=== PATIENT | female | born 1945 | race Asian ===

== ENCOUNTER 2022-10-21 10:37 | Inpatient (IN) | payer OTHER, MEDICAID ==
[~2022-10-21] VITALS: Ht 152.4 cm; Wt 53.1 kg
[~2022-10-21 10:37] MED LIST: ACYC400T19 PO; AMLO-138 PO; GLIM4TAB PO; LEVO750T64 PO; LIPA1CAP23 PO; PRED20TA PO; PRO40 PO; RANI-362 PO; REPA2TAB PO; ROSU10TA2 PO; SITA100T11 PO
[2022-10-21] MEDS ORDERED: CLON0.1T PO (11:12)
[2022-10-21] MEDS ORDERED: ROSU5TAB13 PO (11:12)
[2022-10-21] MEDS ORDERED: REPA1TAB8 PO (11:12)
[2022-10-21] MEDS ORDERED: CALC0.5C11 PO (11:12)
[2022-10-21 11:13] VITALS: BP_SYST 130; PULSE 60; RESP 16; TEMP 97.7; O2SAT 98
[2022-10-21 11:15] LABS: BASOPHILS % (AUTO) 0.7 % (0.0-2.0); EOSINOPHILS % (AUTO) 0.8 % (0.0-4.0); HEMATOCRIT 33.3 % (36-48); HEMOGLOBIN 11.2 g/dL (12.0-16.0); LYMPHOCYTES # (AUTO) 1.4 K/uL (1.0-5.5); LYMPHOCYTES % (AUTO) 32.3 % (20.5-51.5); MEAN CORPUSCULAR HEMOGLOBIN 29 pg (27-31); MEAN CORPUSCULAR HGB CONC 34 % (32-36); MEAN CORPUSCULAR VOLUME 86 fL (79.0-98.0); MONOCYTES # (AUTO) 0.5 K/uL (0.0-1.0); MONOCYTES % (AUTO) 11.1 % (1.7-9.3); NEUTROPHILS # (AUTO) 2.5 K/uL (1.8-7.7); NEUTROPHILS % (AUTO) 55.1 % (40.0-70.0); PLATELET COUNT (AUTO) 201 K/uL (130-430); RED BLOOD CELL COUNT(AUTO) 3.86 MIL/uL (4.2-6.2); RED CELL DISTRIBUTION WIDTH 14.1 % (9.0-15.0); WHITE BLOOD COUNT (AUTO) 4.5 K/uL (4.8-10.8)
[2022-10-21 11:34] LABS: BILIRUBIN,URINE NEGATIVE (NEGATIVE); BLOOD, URINE NEGATIVE (NEGATIVE); CLARITY/URINE CLEAR (CLEAR); GLUCOSE,URINE NEGATIVE (NEGATIVE); KETONES,URINE NEGATIVE (NEGATIVE); LEUKOCYTE ESTERASE ,URINE NEGATIVE (NEGATIVE); NITRITE, URINE NEGATIVE (NEGATIVE); PH,URINE 5.5 (5.0-8.0); PROTEIN URINE 3+ (NEGATIVE); UROBILINOGEN,URINE 0.2 (0.2-1.0)
[2022-10-21 11:36] LABS: ANION GAP 9 (5-15); CALCIUM 9.3 mg/dL (8.4-11.0); CHLORIDE 88 mmol/L (98-107); CREATININE 2.62 mg/dL (0.55-1.30); GLUCOSE 144 mg/dL (74-106); UREA NITROGEN, BLOOD 35 mg/dL (8-21)
[2022-10-21 11:38] LABS: COLOR,URINE STRAW (YELLOW)
[2022-10-21 11:40] LABS: ALANINE AMINOTRANSFERASE 17 U/L (12-78); ALBUMIN 3.4 g/dL (3.4-4.8); ASPARTATE AMINOTRANSFERASE 21 U/L (10-37); TOTAL BILIRUBIN 0.3 mg/dL (0.0-1.0)
[2022-10-21] MEDS ORDERED: ACETAMINOPHEN 500 MG TABLET PO ONE (12:15)
[2022-10-21] MEDS: NACL 0.9% 1,000 ML IV SCH (12:36)
[2022-10-21 13:30] VITALS: BP_SYST 130; PULSE 63; RESP 18; TEMP 97.7; O2SAT 0
[2022-10-21] MEDS ORDERED: ZOLPIDEM TARTRATE 5 MG TABLET PO PRN (13:30)
[2022-10-21] MEDS ORDERED: POTASSIUM CHLORIDE 20 MEQ TAB.PRT.SR PO PRN (13:30)
[2022-10-21] MEDS ORDERED: MUPIROCIN 2% TOPICAL OINTMENT 22 GM NS PRN (13:30)
[2022-10-21] MEDS ORDERED: ONDANSETRON HCL 4 MG/2 ML VIAL IVP PRN (13:30)
[2022-10-21] MEDS ORDERED: ACETAMINOPHEN 325 MG TABLET PO PRN ×2 (13:30→13:45)
[2022-10-21] MEDS ORDERED: MAGNESIUM SULFATE 50 ML IV PRN (13:30)
[2022-10-21] MEDS ORDERED: DOCUSATE SODIUM 100 MG CAPSULE PO PRN (13:30)
[2022-10-21] MEDS ORDERED: MORPHINE 2 MG/ML INJ. SYRINGE IVP PRN ×2 (13:30)
[2022-10-21] MEDS ORDERED: DEXTROSE 50% JECT 50 ML DISP.SYRIN IVP PRN (13:30)
[2022-10-21] MEDS ORDERED: NALOXONE HCL 0.4 MG/ML AMP (NARCAN) IVP PRN ×2 (13:30)
[2022-10-21] MEDS ORDERED: INSULIN LISPRO SLIDING SCALE 100 UNITS/ML, 3 ML VIAL (humaLOG) SUBCUT PRN (13:30)
[2022-10-21] MEDS ORDERED: LORazepam 2 MG/ML VIAL IVP PRN (13:30)
[2022-10-21] MEDS: LIPASE/PROTEASE/AMYLASE 1 CAP PO SCH ×2 (15:41→21:05)
[2022-10-21 15:43] VITALS: BP_SYST 107; PULSE 52; RESP 18; TEMP 97.8
[2022-10-21 19:50] VITALS: BP_SYST 121; PULSE 55; RESP 18; TEMP 96.8; O2SAT 97
[2022-10-22] VITALS: BP_SYST 125; PULSE 57; RESP 16; TEMP 98.2; O2SAT 98
[2022-10-22] MEDS: NACL 0.9% 1,000 ML IV SCH ×2 (03:20→22:11)
[2022-10-22 05:27] LABS: BASOPHILS % (AUTO) 0.6 % (0.0-2.0); EOSINOPHILS % (AUTO) 1.4 % (0.0-4.0); HEMATOCRIT 30.4 % (36-48); HEMOGLOBIN 10.3 g/dL (12.0-16.0); LYMPHOCYTES # (AUTO) 1.5 K/uL (1.0-5.5); LYMPHOCYTES % (AUTO) 42.5 % (20.5-51.5); MEAN CORPUSCULAR HEMOGLOBIN 29 pg (27-31); MEAN CORPUSCULAR HGB CONC 34 % (32-36); MEAN CORPUSCULAR VOLUME 86 fL (79.0-98.0); MONOCYTES # (AUTO) 0.5 K/uL (0.0-1.0); MONOCYTES % (AUTO) 13.1 % (1.7-9.3); NEUTROPHILS # (AUTO) 1.5 K/uL (1.8-7.7); NEUTROPHILS % (AUTO) 42.4 % (40.0-70.0); PLATELET COUNT (AUTO) 203 K/uL (130-430); RED BLOOD CELL COUNT(AUTO) 3.54 MIL/uL (4.2-6.2); WHITE BLOOD COUNT (AUTO) 3.6 K/uL (4.8-10.8)
[2022-10-22 05:53] LABS: ANION GAP 10 (5-15); CHLORIDE 99 mmol/L (98-107); CREATININE 2.54 mg/dL (0.55-1.30); GLUCOSE 95 mg/dL (74-106); PHOSPHORUS 4.5 mg/dL (2.7-4.5); UREA NITROGEN, BLOOD 38 mg/dL (8-21)
[2022-10-22 08:00] VITALS: BP_SYST 141; PULSE 68; RESP 18; TEMP 97.7; O2SAT 99
[2022-10-22] MEDS: ATORVASTATIN 20 MG TABLET PO SCH (09:27)
[2022-10-22] MEDS: calcitrioL 0.25 MCG CAPSULE PO SCH (09:27)
[2022-10-22] MEDS: LIPASE/PROTEASE/AMYLASE 1 CAP PO SCH ×3 (09:27→22:08)
[2022-10-22 12:00] VITALS: BP_SYST 134; PULSE 57; RESP 18; TEMP 98.3; O2SAT 99
[2022-10-22 16:00] VITALS: BP_SYST 148; PULSE 65; RESP 17; TEMP 98.1; O2SAT 99
[2022-10-22 19:00] VITALS: BP_SYST 139; PULSE 69; RESP 18; TEMP 98.2; O2SAT 98
[2022-10-22 20:15] VITALS: BP_SYST 139; PULSE 69; RESP 18; TEMP 98.2; O2SAT 98
[2022-10-23] VITALS (7 sets, daily range): BP systolic 135–166; PULSE 63–75; RESP 16–18; TEMP 97.1–98.4; O2SAT 98–100
[2022-10-23] MEDS: NACL 0.9% 1,000 ML IV SCH ×2 (06:22→21:59)
[2022-10-23 07:07] LABS: BASOPHILS % (AUTO) 0.6 % (0.0-2.0); EOSINOPHILS # (AUTO) 0.1 K/uL (0.0-0.4); EOSINOPHILS % (AUTO) 2.3 % (0.0-4.0); HEMATOCRIT 30.5 % (36-48); HEMOGLOBIN 10.2 g/dL (12.0-16.0); LYMPHOCYTES % (AUTO) 46.6 % (20.5-51.5); MEAN CORPUSCULAR HEMOGLOBIN 29 pg (27-31); MEAN CORPUSCULAR HGB CONC 33 % (32-36); MEAN CORPUSCULAR VOLUME 87 fL (79.0-98.0); MONOCYTES # (AUTO) 0.5 K/uL (0.0-1.0); MONOCYTES % (AUTO) 11.6 % (1.7-9.3); NEUTROPHILS # (AUTO) 1.7 K/uL (1.8-7.7); NEUTROPHILS % (AUTO) 38.9 % (40.0-70.0); PLATELET COUNT (AUTO) 210 K/uL (130-430); RED CELL DISTRIBUTION WIDTH 14.3 % (9.0-15.0); WHITE BLOOD COUNT (AUTO) 4.3 K/uL (4.8-10.8)
[2022-10-23 07:35] LABS: ANION GAP 9 (5-15); CALCIUM 7.9 mg/dL (8.4-11.0); CHLORIDE 106 mmol/L (98-107); CREATININE 2.06 mg/dL (0.55-1.30); GLUCOSE 110 mg/dL (74-106); UREA NITROGEN, BLOOD 37 mg/dL (8-21)
[2022-10-23] MEDS: hydrALAZINE HCL 10 MG TABLET PO PRN ×2 (08:17→17:24)
[2022-10-23] MEDS: calcitrioL 0.25 MCG CAPSULE PO SCH (08:17)
[2022-10-23] MEDS: ATORVASTATIN 20 MG TABLET PO SCH (08:17)
[2022-10-23] MEDS: LIPASE/PROTEASE/AMYLASE 1 CAP PO SCH ×3 (08:18→21:58)
[2022-10-23] MEDS ORDERED: amLODIPine BESYLATE 10 MG TABLET PO ONE (18:00)
[2022-10-23] MEDS ORDERED: lisinopriL 20 MG TABLET PO ONE (18:00)
[2022-10-24 04:10] VITALS: BP_SYST 154; PULSE 82; RESP 18; TEMP 98.4
[2022-10-24 06:03] LABS: ANION GAP 9 (5-15); BASOPHILS % (AUTO) 0.7 % (0.0-2.0); CALCIUM 8.2 mg/dL (8.4-11.0); CHLORIDE 105 mmol/L (98-107); CREATININE 1.77 mg/dL (0.55-1.30); EOSINOPHILS # (AUTO) 0.1 K/uL (0.0-0.4); EOSINOPHILS % (AUTO) 1.7 % (0.0-4.0); GLUCOSE 114 mg/dL (74-106); HEMATOCRIT 29.8 % (36-48); HEMOGLOBIN 9.9 g/dL (12.0-16.0); LYMPHOCYTES # (AUTO) 2.1 K/uL (1.0-5.5); LYMPHOCYTES % (AUTO) 45.5 % (20.5-51.5); MEAN CORPUSCULAR HEMOGLOBIN 29 pg (27-31); MEAN CORPUSCULAR HGB CONC 33 % (32-36); MEAN CORPUSCULAR VOLUME 87 fL (79.0-98.0); MONOCYTES # (AUTO) 0.3 K/uL (0.0-1.0); MONOCYTES % (AUTO) 7.2 % (1.7-9.3); NEUTROPHILS # (AUTO) 2.1 K/uL (1.8-7.7); NEUTROPHILS % (AUTO) 44.9 % (40.0-70.0); PLATELET COUNT (AUTO) 218 K/uL (130-430); RED BLOOD CELL COUNT(AUTO) 3.41 MIL/uL (4.2-6.2); RED CELL DISTRIBUTION WIDTH 14.3 % (9.0-15.0); UREA NITROGEN, BLOOD 31 mg/dL (8-21); WHITE BLOOD COUNT (AUTO) 4.6 K/uL (4.8-10.8)
[2022-10-24 08:25] VITALS: BP_SYST 169; PULSE 71; TEMP 97.2; O2SAT 99
[2022-10-24] MEDS: LIPASE/PROTEASE/AMYLASE 1 CAP PO SCH (08:34)
[2022-10-24] MEDS: calcitrioL 0.25 MCG CAPSULE PO SCH (08:34)
[2022-10-24] MEDS: ATORVASTATIN 20 MG TABLET PO SCH (08:34)
[2022-10-24] MEDS ORDERED: lisinopriL 20 MG TABLET PO SCH (09:00)
[2022-10-24] MEDS ORDERED: amLODIPine BESYLATE 10 MG TABLET PO SCH (09:00)
[2022-10-24] MEDS: hydrALAZINE HCL 10 MG TABLET PO PRN (10:41)
[2022-10-24 12:00] VITALS: BP_SYST 149; PULSE 78; RESP 18; TEMP 97.8; O2SAT 100
[2022-10-24 13:38] VITALS: BP_SYST 149; PULSE 78; RESP 18; TEMP 97.8; O2SAT 100
== END 2022-10-24 14:10 | disposition home or self-care (01) | DRG 71 ==
LOC: SED 10:37 → STU 12:17 → SMU 10-23 16:20
PROVIDERS: ADMIT General Practice; ATTEND General Practice
PROC: 4A10X4Z Monitoring of Central Nervous Electrical Activity, External Approach (ICD-10-PCS; principal; 2022-10-23)
DX: G93.41 Metabolic encephalopathy (principal); E87.1 Hypo-osmolality and hyponatremia; N18.4 Chronic kidney disease, stage 4 (severe); N17.9 Acute kidney failure, unspecified; R56.9 Unspecified convulsions; K21.9 Gastro-esophageal reflux disease without esophagitis; I12.9 Hypertensive chronic kidney disease with stage 1 through stage 4 chronic kidney disease, or unspecified chronic kidney disease; E11.22 Type 2 diabetes mellitus with diabetic chronic kidney disease; E78.00 Pure hypercholesterolemia, unspecified; S09.90XA Unspecified injury of head, initial encounter; Z20.822 Contact with and (suspected) exposure to COVID-19; W18.39XA Other fall on same level, initial encounter; Z79.899 Other long term (current) drug therapy; Z86.73 Personal history of transient ischemic attack (TIA), and cerebral infarction without residual deficits; Y93.89 Activity, other specified; Y92.89 Other specified places as the place of occurrence of the external cause; Y99.8 Other external cause status; Q04.9 Congenital malformation of brain, unspecified
CPT/HCPCS: 36415; 70450-TC; 70551; 71045; 76376; 80048; 80053; 81003; 82533; 82962; 83037; 83605; 83735; 83880; 84100; 84443; 84484; 85025; 93005; 95816; 99285; G0378; J7030